=== PATIENT | male | born 1960 | race Caucasian/White ===

== ENCOUNTER 2018-08-26 20:29 | Inpatient (IN) | payer OTHER | END 2018-08-28 18:30 | disposition home or self-care (01) | LOC: ER 20:29 → TELE 08-27 05:58 → TELE-WESTW 08-27 14:21 | DX: I13.0 Hypertensive heart and chronic kidney disease with heart failure and stage 1 through stage 4 chronic kidney disease, or unspecified chronic kidney disease (principal); E11.22 Type 2 diabetes mellitus with diabetic chronic kidney disease; N17.9 Acute kidney failure, unspecified; E11.65 Type 2 diabetes mellitus with hyperglycemia; N18.3 Chronic kidney disease, stage 3 (moderate); I50.41 Acute combined systolic (congestive) and diastolic (congestive) heart failure; N18.9 Chronic kidney disease, unspecified; R79.1 Abnormal coagulation profile; E66.9 Obesity, unspecified; I50.43 Acute on chronic combined systolic (congestive) and diastolic (congestive) heart failure; I25.5 Ischemic cardiomyopathy; E44.1 Mild protein-calorie malnutrition; Z68.36 Body mass index [BMI] 36.0-36.9, adult ==

== ENCOUNTER → 2018-10-07 | Outpatient (CLI) | payer MEDICARE, OTHER ==
[~2018-10-07] MED LIST: ACAR25TA PO; ASP81EC PO; ATOR20TA50 PO; CLOP75TA28 PO; DOXA4TAB40 PO; FENO1TAB42 PO; FLUO-125 PO; GABA100C9 PO; HCTZ25T PO; MELO1TAB73 PO; METO-5 PO; OMEP20TA PO; PANT40T PO; PYRI50TA67 PO; SACU1TAB7 PO; TRAM50TA2 PO
== END | disposition home or self-care (01) ==
LOC: Rad HDHVI 09:32
PROVIDERS: ATTEND Internal Medicine Cardiovascular Disease
DX: I34.0 Nonrheumatic mitral (valve) insufficiency (principal); I25.5 Ischemic cardiomyopathy; I20.9 Angina pectoris, unspecified; I12.9 Hypertensive chronic kidney disease with stage 1 through stage 4 chronic kidney disease, or unspecified chronic kidney disease; E11.22 Type 2 diabetes mellitus with diabetic chronic kidney disease; N18.3 Chronic kidney disease, stage 3 (moderate)
CPT/HCPCS: 93306

== ENCOUNTER → 2018-10-27 | Outpatient (CLI) | payer MEDICARE, OTHER ==
[~2018-10-27] VITALS: Ht 172.7 cm; Wt 90.7 kg
[~2018-10-27] MED LIST changes: +ADENOSINE 76 MG in GIVE UN-DILUTED 0 ML IV ONE; +ADENOSINE 90 MG/30 ML INJ IV ONE
== END | disposition home or self-care (01) ==
LOC: Rad HDHVI 12:52
PROVIDERS: ATTEND Internal Medicine Cardiovascular Disease
DX: I25.5 Ischemic cardiomyopathy (principal); I13.0 Hypertensive heart and chronic kidney disease with heart failure and stage 1 through stage 4 chronic kidney disease, or unspecified chronic kidney disease; E11.22 Type 2 diabetes mellitus with diabetic chronic kidney disease; I50.23 Acute on chronic systolic (congestive) heart failure; N18.3 Chronic kidney disease, stage 3 (moderate); N28.9 Disorder of kidney and ureter, unspecified; I25.119 Atherosclerotic heart disease of native coronary artery with unspecified angina pectoris
CPT/HCPCS: 78452; 93005; 96374; 96375; A9500; J0153

== ENCOUNTER 2019-02-02 16:06 | Inpatient (IN) | payer MEDICARE, OTHER ==
[~2019-02-02] VITALS: Ht 172.7 cm; Wt 88.0 kg
[~2019-02-02 16:06] MED LIST changes: -ADENOSINE 76 MG in GIVE UN-DILUTED 0 ML IV ONE; -ADENOSINE 90 MG/30 ML INJ IV ONE; -DOXA4TAB40 PO; +DOXA4TAB5 PO
[2019-02-02 16:46] LABS: Basophils # (auto) 0.2 uL; Eosinophils # (auto) 0.1 uL; Eosinophils % (auto) 0.5 % (0.0-7.0); Hemoglobin 14.2 g/dL (13.5-17.5); Neutrophils # (auto) 7.5 uL
[2019-02-02 16:48] LABS: Basophils % (auto) 1.6 % (0.0-2.0); Hematocrit 38.4 % (41.0-53.0); Lymphocytes # (auto) 1.8 uL; Lymphocytes % (auto) 17.5 % (10.0-50.0); Mean Corpuscular Hgb Conc. 36.9 g/dL (32.0-36.0); Mean Corpuscular Volume 97.5 fL (80.0-100.0); Monocytes # (auto) 0.8 uL; Monocytes % (auto) 7.3 % (0.0-12.0); Neutrophils % (auto) 73.1 % (37.0-80.0); Platelet Count (auto) 322 10^3/uL (140-450); Red Blood Cells 3.94 10^6/uL (4.5-5.90); Red Cell Distribution Width 13.4 % (11.8-14.3); White Blood Cell 10.3 10^3/uL (4.4-10.8)
[2019-02-02 17:01] LABS: Albumin 3.6 g/dL (3.4-5.0); BUN/Creatinine Ratio 18.9; Calcium 9.2 mg/dL (8.5-10.1)
[2019-02-02 17:10] LABS: Bilirubin, Total 1.2 mg/dL (0.2-1.0); Total Protein 7.3 g/dL (6.4-8.2)
[2019-02-02 17:13] LABS: Potassium 2.9 mmol/L (3.5-5.1)
[2019-02-02] MEDS ORDERED: SODIUM CHLORIDE 0.9% 1,000 ML IVB ONE (18:14)
[2019-02-02] MEDS: POTASSIUM CHL 20MEQ/100ML 100 ML IV SCH ×2 (19:30→21:50)
[2019-02-02] MEDS ORDERED: POTASSIUM CHL 20MEQ/100ML 100 ML IV ONE (19:34)
[2019-02-02] MEDS ORDERED: FOLIC ACID 1 MG, MULTIPLE VITAMIN 10 ML, MAGNESIUM SULF SDV 50% 8 MEQ, THIAMINE INJ 100... INJ STA ×5 (20:39)
[2019-02-02] MEDS ORDERED: PANTOPRAZOLE 40 MG TAB PO ONE (21:00)
[2019-02-02] MEDS ORDERED: THIAMINE HCL 100 MG TAB PO ONE (21:00)
[2019-02-02] MEDS ORDERED: ASPirin-EC 81 mg tab PO ONE (21:00)
[2019-02-02] MEDS ORDERED: DEXTROSE (50%) 50ML SYRG IV PRN (22:00)
[2019-02-02] MEDS ORDERED: ONDANSETRON HCL 4 MG/2 ML VIAL IV PRN (22:00)
[2019-02-02] MEDS ORDERED: chlordiazePOXIDE HCL 25 MG CAP PO PRN (22:00)
[2019-02-02] MEDS ORDERED: METOPROLOL TARTRATE 50 MG TAB PO SCH (22:00)
[2019-02-02] MEDS ORDERED: SACUBITRIL-VALSARTAN 24mg/26mg TAB PO SCH (22:00)
[2019-02-02] MEDS ORDERED: MORPHINE SULF INJ 2 MG/ML SYRINGE 1ML IV PRN (22:15)
[2019-02-02] MEDS ORDERED: NITROGLYCERIN 0.4 MG SL TAB SL PRN (22:15)
[2019-02-02] MEDS: ATORVASTATIN 20 MG TAB PO SCH (22:26)
--- NOTE | 2019-02-02 23:55 | NUR ---
Telemetry admit from ER MCKENNA SALDANA admitted to Telemetry unit after SBAR received. Patient oriented to primary RN, unit, room, bed, and unit policies regarding patient care and visiting hours. Patient now on continuous telemetry monitoring, tele box # [id number]. Patient placed on bedside oxygen, weighed by bedscale and encouraged to call if they need something. All questions and concerns addressed, patient verbalized understanding.
[2019-02-03] MEDS: TEMAZEPAM 15 MG CAP PO PRN ×2 (00:34→21:51)
[2019-02-03] MEDS: ACCU-CHEK COMFORT CURVE STRIP VI SCH ×4 (00:34→17:38)
[2019-02-03] MEDS: InsuLIN REG 1unit/0.01ml Soln (100units/ml) SC SCH ×4 (01:14→17:37)
[2019-02-03 04:19] VITALS: BP 110/60
[2019-02-03 05:00] VITALS: BP 118/50
[2019-02-03 05:05] LABS: Albumin 2.7 g/dL (3.4-5.0); Calcium 8.1 mg/dL (8.5-10.1)
[2019-02-03 05:09] LABS: BUN/Creatinine Ratio 21.6; Bilirubin, Total 0.7 mg/dL (0.2-1.0); Total Protein 5.6 g/dL (6.4-8.2)
--- NOTE | 2019-02-03 05:20 | NUR ---
Critical Value Critical Value reading at 2.6 and BUN at 136. Call from Ender Atkinson from Lab. Hospitalist called, awaiting call back.
[2019-02-03 05:22] LABS: Potassium 2.6 mmol/L (3.5-5.1)
[2019-02-03 05:53] LABS: Basophils # (auto) 0.1 uL; Basophils % (auto) 0.9 % (0.0-2.0); Eosinophils # (auto) 0.1 uL; Eosinophils % (auto) 1.3 % (0.0-7.0); Hematocrit 32.3 % (41.0-53.0); Hemoglobin 11.9 g/dL (13.5-17.5); Lymphocytes # (auto) 1.8 uL; Lymphocytes % (auto) 21.5 % (10.0-50.0); Mean Corpuscular Hgb Conc. 36.9 g/dL (32.0-36.0); Mean Corpuscular Volume 97.6 fL (80.0-100.0); Monocytes # (auto) 0.7 uL; Monocytes % (auto) 7.8 % (0.0-12.0); Neutrophils # (auto) 5.8 uL; Neutrophils % (auto) 68.5 % (37.0-80.0); Nucleated Red Blood Cells % 0.2 %; Platelet Count (auto) 249 10^3/uL (140-450); Red Blood Cells 3.31 10^6/uL (4.5-5.90); Red Cell Distribution Width 13.1 % (11.8-14.3); White Blood Cell 8.5 10^3/uL (4.4-10.8)
--- NOTE | 2019-02-03 06:22 | NUR ---
Call back from Hospitalist. Orders received to give Potassium PO tablets. Orders carried out, will continue to monitor for changes.
[2019-02-03] MEDS ORDERED: POTASSIUM CHL 20 Meq TABLET PO ONE ×2 (06:30→17:30)
--- NOTE | 2019-02-03 07:30 | NUR ---
Opening Shift Note Assumed care of patient, awake, alert, and oriented x4. No S/S of distress/SOB or pain. IV is in left forearm 20 gauge, asymptomatic, intact, patent, and saline locked. Bed is locked and in lowest position and call light is within reach. Instructed on POC and to call for assist PRN, and patient verbalized understanding. Will continue to monitor for changes Q1hr and PRN.
[2019-02-03 09:00] VITALS: BP 99/50
--- NOTE | 2019-02-03 09:30 | NUR ---
Patient requesting to go outside to smoke; patient signed AMA paper, and paper was put in hard chart.
[2019-02-03] MEDS ORDERED: ASPirin 81 mg TAB PO SCH (10:00)
[2019-02-03] MEDS ORDERED: HCTZ 25 MG TAB PO SCH (10:00)
--- NOTE | 2019-02-03 10:10 | NUR ---
Dr. Echavarria, Seamless Tube Mill Operator, at bedside; new orders received.
--- NOTE | 2019-02-03 10:10 | NUR ---
Patient blood pressure is 85/47 mmHg. IV normal saline 500 mL bolus ordered. IV fluids normal saline order received for 100 mL/hour.
[2019-02-03] MEDS: SODIUM CHLORIDE 0.9% 1,000 ML IV SCH ×2 (10:15→21:51)
[2019-02-03] MEDS ORDERED: SODIUM CHLORIDE 0.9% 500 ML IV ONE ×2 (10:15→11:00)
[2019-02-03 10:19] LABS: Basophils # (auto) 0.1 uL; Eosinophils # (auto) 0.1 uL; Hemoglobin 12.9 g/dL (13.5-17.5); Lymphocytes # (auto) 1.3 uL; Mean Corpuscular Hemoglobin 36.7 pg (28.0-32.0); Monocytes # (auto) 0.5 uL; Red Blood Cells 3.51 10^6/uL (4.5-5.90); White Blood Cell 7.4 10^3/uL (4.4-10.8)
[2019-02-03 10:23] LABS: Eosinophils % (auto) 1.7 % (0.0-7.0); Hematocrit 34.8 % (41.0-53.0); Lymphocytes % (auto) 17.3 % (10.0-50.0); Mean Corpuscular Volume 99.2 fL (80.0-100.0); Monocytes % (auto) 6.8 % (0.0-12.0); Neutrophils # (auto) 5.4 uL; Neutrophils % (auto) 73.2 % (37.0-80.0); Platelet Count (auto) 268 10^3/uL (140-450); Red Cell Distribution Width 12.9 % (11.8-14.3)
--- NOTE | 2019-02-03 10:30 | NUR ---
Blood pressure reassessment 97/61 mmHg. Patient sitting in chair; no distress dizziness, or pain reported at this time. Will continue to monitor Q30 minutes.
[2019-02-03 10:33] LABS: Mean Corpuscular Hgb Conc. 36.7 g/dL (32.0-36.0)
--- NOTE | 2019-02-03 10:35 | NUR ---
Sanchez catheter insertion Patient assessed and determined to be in need of sanchez catheter. Order obtained from Dr. Italia MD. Patient educated on catheter and reason for insertion. All questions answered. Sanchez catheter 16 gauge [place] inserted with clean sterile technique. Patient tolerated well.
[2019-02-03 10:48] LABS: Calcium 8.3 mg/dL (8.5-10.1); Potassium 3.3 mmol/L (3.5-5.1)
--- NOTE | 2019-02-03 10:50 | NUR ---
Dr. Edge, Termite Control Representative, at bedside.
[2019-02-03 10:51] LABS: BUN/Creatinine Ratio 22.2; Bilirubin, Total 0.8 mg/dL (0.2-1.0); Total Protein 6.3 g/dL (6.4-8.2)
[2019-02-03] MEDS ORDERED: SODIUM CHLORIDE 0.9% 1,000 ML IV SCH (11:00)
--- NOTE | 2019-02-03 11:01 | NUR ---
Patient placed on strict I&O's.
[2019-02-03] MEDS: ASPirin 81 mg TAB PO SCH (11:10)
[2019-02-03] MEDS: FLUoxetine HCL 20 MG CAP PO SCH (11:11)
[2019-02-03] MEDS: GABAPENTIN 100 MG CAP PO SCH (11:12)
[2019-02-03] MEDS: PANTOPRAZOLE 40 MG TAB PO SCH (11:12)
--- NOTE | 2019-02-03 11:12 | NUR ---
CRITICAL LAB Received call from lab with critical BUN 129; informed Dr. Echavarria, Mover.
[2019-02-03] MEDS: CLOPIDOGREL BISULFATE 75 MG TAB PO SCH (11:13)
[2019-02-03] MEDS ORDERED: FOLIC ACID 1 MG, MULTIPLE VITAMIN 10 ML, MAGNESIUM SULF SDV 50% 8 MEQ, THIAMINE INJ 100... INJ SCH ×5 (12:00)
[2019-02-03] MEDS: FOLIC ACID 1 MG, MULTIPLE VITAMIN 10 ML, MAGNESIUM SULF SDV 50% 8 MEQ, THIAMINE INJ 100... INJ SCH ×5 (12:00)
[2019-02-03 13:00] VITALS: BP 103/69
--- NOTE | 2019-02-03 16:00 | NUR ---
Dr. Horace MD, at bedside.
[2019-02-03 16:19] LABS: BUN/Creatinine Ratio 24.2; Calcium 8.2 mg/dL (8.5-10.1); Potassium 3.4 mmol/L (3.5-5.1)
--- NOTE | 2019-02-03 16:35 | NUR ---
CRITICAL LAB Received call from lab with critical BUN 125; informed Dr. Horace MD.
[2019-02-03 17:00] VITALS: BP 102/66
--- NOTE | 2019-02-03 17:20 | NUR ---
Sent urine sample to lab.
[2019-02-03 17:31] LABS: Urine Bacteria FEW /hpf (None Seen); Urine Blood 2+ /uL (Negative); Urine Specific Gravity 1.012 (1.001-1.035); Urine WBC 11 /hpf (0 - 3)
[2019-02-03 17:51] LABS: Alcohol, Urine < 3.0 mg/dL (0-5); Amphetamine Screen, Urine NEGATIVE (NEGATIVE); Barbiturate Scree,Urine NEGATIVE (NEGATIVE); Benzodiazephine Screen, Urine NEGATIVE (NEGATIVE); Cannabinoid Screen, Urine NEGATIVE (NEGATIVE); Cocaine Screen, Urine NEGATIVE (NEGATIVE); Creatinine, Urine 72 mg/dL (30.0-125.0); Opiate Scree,Urine NEGATIVE (NEGATIVE); Phencyclidine Screen, Urine NEGATIVE (NEGATIVE); Sodium Urine 48 mmol/L (40-220)
--- NOTE | 2019-02-03 19:30 | NUR ---
Opening Shift Note Assumed care of patient. Patient is awake and alert. No S/S of distress/SOB or pain. Wall catheter intact, patent and draining to gravity. Instructed on POC and to call for assist PRN, will continue to monitor for changes. Bed locked in lowest position and bed rails up x2. Call light within reach.
[2019-02-03] MEDS: ATORVASTATIN 20 MG TAB PO SCH (21:51)
[2019-02-03 22:00] VITALS: BP 94/63
[2019-02-04] MEDS: ACCU-CHEK COMFORT CURVE STRIP VI SCH ×5 (00:14→23:40)
[2019-02-04] MEDS: InsuLIN REG 1unit/0.01ml Soln (100units/ml) SC SCH ×5 (00:14→23:41)
[2019-02-04 05:17] VITALS: BP 109/64
[2019-02-04 06:22] LABS: Basophils # (auto) 0.1 uL; Hemoglobin 11.7 g/dL (13.5-17.5); Mean Corpuscular Hemoglobin 36.2 pg (28.0-32.0); Neutrophils # (auto) 5.2 uL; Red Cell Distribution Width 13.3 % (11.8-14.3); White Blood Cell 7.2 10^3/uL (4.4-10.8)
[2019-02-04 06:26] LABS: Eosinophils # (auto) 0.2 uL; Eosinophils % (auto) 2.2 % (0.0-7.0); Lymphocytes # (auto) 1.3 uL; Lymphocytes % (auto) 18.2 % (10.0-50.0); Mean Corpuscular Volume 96.2 fL (80.0-100.0); Monocytes # (auto) 0.4 uL; Monocytes % (auto) 5.9 % (0.0-12.0); Neutrophils % (auto) 71.7 % (37.0-80.0); Platelet Count (auto) 232 10^3/uL (140-450); Red Blood Cells 3.22 10^6/uL (4.5-5.90)
[2019-02-04] MEDS: SODIUM CHLORIDE 0.9% 1,000 ML IV SCH ×2 (06:31→16:15)
[2019-02-04 06:34] LABS: BUN/Creatinine Ratio 26.9; Calcium 8.3 mg/dL (8.5-10.1); Magnesium 2.3 mg/dL (1.6-2.6); Phosphorus 2.9 mg/dL (2.5-4.90)
[2019-02-04 06:36] LABS: Mean Corpuscular Hgb Conc. 36.7 g/dL (32.0-36.0)
--- NOTE | 2019-02-04 06:46 | NUR ---
CRITICAL LAB VALUE Received call from lab for BUN value of 109. Value acknowledged and trending down.
--- NOTE | 2019-02-04 07:30 | NUR ---
Opening Shift Note Assumed care of patient, awake, alert, and oriented x4. No S/S of distress/SOB or pain. IV is in left forearm 20 gauge, asymptomatic, intact, patent, and saline locked. Wall catheter patent and draining clear marcus urine to gravity. Bed is locked and in lowest position and call light is within reach. Instructed on POC and to call for assist PRN, and patient verbalized understanding. Will continue to monitor for changes Q1hr and PRN.
[2019-02-04 09:00] VITALS: BP 115/78
[2019-02-04] MEDS ORDERED: POTASSIUM EFFERVESENT TAB 25 MEQ PO ONE (09:15)
[2019-02-04] MEDS: NICOTINE 21MG/24 HR TOPICAL PATCH TD SCH (10:00)
[2019-02-04] MEDS: FLUoxetine HCL 20 MG CAP PO SCH (10:10)
[2019-02-04] MEDS: PANTOPRAZOLE 40 MG TAB PO SCH (10:10)
[2019-02-04] MEDS: CLOPIDOGREL BISULFATE 75 MG TAB PO SCH (10:10)
[2019-02-04] MEDS: ASPirin 81 mg TAB PO SCH (10:10)
[2019-02-04] MEDS: GABAPENTIN 100 MG CAP PO SCH (10:10)
[2019-02-04] MEDS ORDERED: POTASSIUM CHL 20 Meq TABLET PO ONE (11:00)
[2019-02-04] MEDS: FOLIC ACID 1 MG, MULTIPLE VITAMIN 10 ML, MAGNESIUM SULF SDV 50% 8 MEQ, THIAMINE INJ 100... INJ SCH ×5 (12:18)
[2019-02-04 13:00] VITALS: BP 133/93
--- NOTE | 2019-02-04 14:00 | NUR ---
Dr. Horace MD, at bedside.
[2019-02-04 16:47] VITALS: BP 107/72
--- NOTE | 2019-02-04 18:11 | NUR ---
Assessment Pt was in a deep sleep and after several prompts, SW unable to wake up pt for initial assessment Addendum: 02/04/19 at 1812 by OFELIA BALL SS Amended: Links added.
--- NOTE | 2019-02-04 19:30 | NUR ---
PM NOTE PT SITTING IN BED BY WINDOW, PLAYING IN COMPUTER [employer], RESPIRATIONS NORMAL AND NON-LABORED, NO DISTRESS NOTED. 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 WILL CONTINUE TO MONITOR Signed: 02/04/19 at 2143 by SAM DICK SN <Co-Signature Required> Co-Signed: 02/04/19 at 2143 by Anne Conner RN
--- NOTE | 2019-02-04 22:00 | NUR ---
PT SITTING IN CHAIR BY WINDOW PLAYING ON COMPUTER. A&OX[employer], RESPIRATIONS ARE NORMAL AND NON-LABORED. NO SIGNS OF DISTRESS, DENIES ANY PAIN AT THE MOMENT. PT AWARE OF PLAN OF CARE. WILL CONTINUE TO MONITOR. Signed: 02/05/19 at 041 by SAM DICK <Co-Signature Required> Co-Signed: 02/05/19 at 411 by Anne Conner RN
[2019-02-04] MEDS: ATORVASTATIN 20 MG TAB PO SCH (22:07)
[2019-02-04 22:30] VITALS: BP 127/95
[2019-02-04] MEDS: TEMAZEPAM 15 MG CAP PO PRN (23:26)
--- NOTE | 2019-02-04 23:30 | NUR ---
PT LAYING IN BED RESTING CALMLY, RESPIRATIONS ARE NORMAL AND NON-LABORED. NO SIGNS OF DISTRESS. CALL LIGHT WITHIN REACH. WILL CONTINUE TO MONITOR. Signed: 02/05/19 at 416 by SAM DICK <Co-Signature Required> Co-Signed: 02/05/19 at 416 by Anne Conner RN
--- NOTE | 2019-02-05 03:00 | NUR ---
PT DONE WITH BANANA BAG REFUSING NS IV FLUIDS AT THIS TIME. PT CURRENTLY DRINKING WATER. EDUCATED PT ABOUT BENEFITS OF IV FLUIDS, PT VERBALIZED UNDERSTANDING. Signed: 02/05/19 at 0405 by SAM DICK <Co-Signature Required> Co-Signed: 02/05/19 at 0405 by Anne Conner RN
[2019-02-05 05:15] VITALS: BP 120/64
[2019-02-05] MEDS: SODIUM CHLORIDE 0.9% 1,000 ML IV SCH ×3 (05:39→22:15)
[2019-02-05] MEDS: ACCU-CHEK COMFORT CURVE STRIP VI SCH ×3 (05:40→18:07)
[2019-02-05] MEDS: InsuLIN REG 1unit/0.01ml Soln (100units/ml) SC SCH ×3 (05:40→18:00)
[2019-02-05 06:07] LABS: Basophils # (auto) 0.1 uL; Eosinophils # (auto) 0.2 uL; Lymphocytes # (auto) 1.2 uL; Mean Corpuscular Hemoglobin 36.6 pg (28.0-32.0); Monocytes # (auto) 0.4 uL; Red Cell Distribution Width 13.1 % (11.8-14.3)
[2019-02-05 06:09] LABS: Basophils % (auto) 1.9 % (0.0-2.0); Eosinophils % (auto) 2.6 % (0.0-7.0); Hematocrit 30.9 % (41.0-53.0); Hemoglobin 11.7 g/dL (13.5-17.5); Lymphocytes % (auto) 18.6 % (10.0-50.0); Mean Corpuscular Hgb Conc. 37.8 g/dL (32.0-36.0); Mean Corpuscular Volume 96.9 fL (80.0-100.0); Neutrophils # (auto) 4.7 uL; Neutrophils % (auto) 70.9 % (37.0-80.0); Platelet Count (auto) 222 10^3/uL (140-450); Red Blood Cells 3.19 10^6/uL (4.5-5.90); White Blood Cell 6.6 10^3/uL (4.4-10.8)
[2019-02-05 06:55] LABS: Albumin 2.7 g/dL (3.4-5.0); BUN/Creatinine Ratio 28.6; Bilirubin, Total 0.6 mg/dL (0.2-1.0); Calcium 8.5 mg/dL (8.5-10.1); Magnesium 2.1 mg/dL (1.6-2.6); Total Protein 5.5 g/dL (6.4-8.2)
--- NOTE | 2019-02-05 07:58 | NUR ---
OPENING SHIFT NOTE ASSUMED CARE OF PATIENT. PATIENT AWAKE AND ALERT SITTING UP IN CHAIR AT BEDSIDE. NO S/S OF DISTRESS OR SOB NOTED AT THIS TIME. BED IN LOWEST LOCKED POSITION. REVIEWED POC WITH PATIENT AND INSTRUCTED TO CALL FOR ASSIST NEEDED. WILL CONTINUE TO MONITOR.
[2019-02-05 09:00] VITALS: BP 124/77
[2019-02-05] MEDS ORDERED: POTASSIUM CHL 20 Meq TABLET PO ONE (09:15)
[2019-02-05] MEDS: NICOTINE 21MG/24 HR TOPICAL PATCH TD SCH (10:00)
[2019-02-05] MEDS: CLOPIDOGREL BISULFATE 75 MG TAB PO SCH (10:33)
[2019-02-05] MEDS: PANTOPRAZOLE 40 MG TAB PO SCH (10:33)
[2019-02-05] MEDS: GABAPENTIN 100 MG CAP PO SCH (10:34)
[2019-02-05] MEDS: ASPirin 81 mg TAB PO SCH (10:34)
[2019-02-05] MEDS: FLUoxetine HCL 20 MG CAP PO SCH (10:34)
[2019-02-05] MEDS: FOLIC ACID 1 MG, MULTIPLE VITAMIN 10 ML, MAGNESIUM SULF SDV 50% 8 MEQ, THIAMINE INJ 100... INJ SCH ×5 (11:59)
--- NOTE | 2019-02-05 12:00 | NUR ---
AT BEDSIDE DR ROSS AT BEDSIDE AT THIS TIME. NO NEW ORDERS RECEIVED. CONTINUING TO MONITOR.
[2019-02-05 12:30] VITALS: BP 105/57
[2019-02-05 17:00] VITALS: BP 126/84
--- NOTE | 2019-02-05 19:25 | NUR ---
OPENING SHIFT NOTE ASSUMED CARE OF PATIENT. PATIENT AWAKE AND ALERT SITTING UP IN A CHAIR. NO S/S OF DISTRESS OR SOB NOTED. CALL LIGHT WITHIN REACH. REVIEWED POC WITH PATIENT AND INSTRUCTED TO CALL FOR ASSIST NEEDED. WILL CONTINUE TO MONITOR.
[2019-02-05] MEDS: TEMAZEPAM 15 MG CAP PO PRN (22:15)
[2019-02-05] MEDS: ATORVASTATIN 20 MG TAB PO SCH (22:15)
--- NOTE | 2019-02-05 22:45 | NUR ---
GAVE REPORT TO KYRA.
--- NOTE | 2019-02-05 22:45 | NUR ---
Received report from Anne. Will continue care.
[2019-02-05 23:40] VITALS: BP 145/105
[2019-02-06 05:40] VITALS: BP 118/68
[2019-02-06] MEDS: InsuLIN REG 1unit/0.01ml Soln (100units/ml) SC SCH ×5 (06:00→23:55)
[2019-02-06] MEDS: ACCU-CHEK COMFORT CURVE STRIP VI SCH ×5 (06:00→23:56)
--- NOTE | 2019-02-06 07:30 | NUR ---
OPENING SHIFT NOTE ASSUMED CARE OF PATIENT. PATIENT RESTING COMFORTABLY IN BED WITH EYES CLOSED. NO S/S OF DISTRESS OR SOB NOTED. BED IN LOWEST LOCKED POSITION, CALL LIGHT WITHIN REACH. WILL CONTINUE TO MONITOR.
[2019-02-06 07:37] LABS: Calcium 8.5 mg/dL (8.5-10.1); Potassium 3.3 mmol/L (3.5-5.1)
[2019-02-06 07:39] LABS: BUN/Creatinine Ratio 29.1
[2019-02-06] MEDS: SODIUM CHLORIDE 0.9% 1,000 ML IV SCH ×2 (08:15→22:00)
[2019-02-06 08:43] VITALS: BP 148/94
[2019-02-06] MEDS ORDERED: POTASSIUM CHL 20 Meq TABLET PO ONE (09:00)
[2019-02-06] MEDS: FLUoxetine HCL 20 MG CAP PO SCH (09:57)
[2019-02-06] MEDS: CLOPIDOGREL BISULFATE 75 MG TAB PO SCH (09:57)
[2019-02-06] MEDS: PANTOPRAZOLE 40 MG TAB PO SCH (09:57)
[2019-02-06] MEDS: SPIRONOLACTONE 25 MG TAB PO SCH (09:57)
[2019-02-06] MEDS: GABAPENTIN 100 MG CAP PO SCH (09:58)
[2019-02-06] MEDS: ASPirin 81 mg TAB PO SCH (09:58)
[2019-02-06] MEDS: NICOTINE 21MG/24 HR TOPICAL PATCH TD SCH (10:00)
[2019-02-06] MEDS: FOLIC ACID 1 MG, MULTIPLE VITAMIN 10 ML, MAGNESIUM SULF SDV 50% 8 MEQ, THIAMINE INJ 100... INJ SCH ×5 (12:00)
[2019-02-06 13:00] VITALS: BP 141/83
--- NOTE | 2019-02-06 15:49 | NUR ---
PATIENT REPORTED INJURY PATIENT RETURNED TO UNIT FROM GOING OUTSIDE TO SMOKE. AMA PREVIOUSLY OBTAINED. PATIENT WAS NOTED TO BE BLEEDING FROM RIGHT LOMBARDI. PER PATIENT HE BUMPED THE FOOT RESTS ON THE WHEELCHAIR. RN CLEANSED SKIN AND PAT DRY AND NOTED SKIN TEAR. PHOTOS TAKEN AND DRESSING APPLIED. PATIENT TOLERATED WELL.
[2019-02-06 17:00] VITALS: BP 154/96
--- NOTE | 2019-02-06 18:43 | NUR ---
END OF SHIFT NOTE PATIENT AWAKE AND ALERT SITTING UP IN BED. NO S/S OF DISTRESS OR SOB NOTED. BED IN LOWEST LOCKED POSITION, CALL LIGHT WITHIN REACH. WILL ENDORSE CARE TO NOC RN.
--- NOTE | 2019-02-06 19:30 | NUR ---
Opening Shift Assumed care of patient, awake and alert. No S/S of distress/SOB or pain. Insructed on POC and to callfor assist PRN, will continue to monitor for changes Q1hr and PRN. Fall and safety precautions in place. Call light within reach.
--- NOTE | 2019-02-06 20:00 | NUR ---
PATIENT OFF FLOOR Patient requesting to be disconnected from IV fluids to go downstairs. Patient was disconnected and ambulated self to wheelchair. Patient able to wheel himself independently off floor. No distress noted.
--- NOTE | 2019-02-06 20:29 | NUR ---
PATIENT BACK Patient back in room. No distress noted. Will continue to monitor
[2019-02-06] MEDS: TEMAZEPAM 15 MG CAP PO PRN (21:36)
[2019-02-06] MEDS: ATORVASTATIN 20 MG TAB PO SCH (21:36)
--- NOTE | 2019-02-06 22:00 | NUR ---
IV FLUIDS Patient refusing IV fluids, stating the pump has been beeping "all day." IV access flushed with saline, was patent and asymptomatic. Attempted to straighten IV tubing by securing to patient's extremity, IV pump still continued to beep, saying "pressure high." Educated patient that IV fluids needed to be infused because it was full of vitamins and minerals (banana bag from earlier in day still hasn't been infused). Patient stated "I'll just take a multivitamin." Educated patient that maybe a different IV access needed to be obtained, patient refused. Patient stating "just disconnect the fucking thing and call it a night," as witnessed by ERGONOMIC SPECIALIST. Patient disconnected from IV fluids at this time, will inform day shift RN to inform MD. Will continue to monitor
[2019-02-07] MEDS: SODIUM CHLORIDE 0.9% 1,000 ML IV SCH ×2 (04:15→11:30)
[2019-02-07 05:43] VITALS: BP 137/68
[2019-02-07] MEDS: ACCU-CHEK COMFORT CURVE STRIP VI SCH ×4 (05:45→23:29)
[2019-02-07] MEDS: InsuLIN REG 1unit/0.01ml Soln (100units/ml) SC SCH ×4 (05:45→23:29)
[2019-02-07 07:00] LABS: Calcium 8.7 mg/dL (8.5-10.1); Potassium 3.5 mmol/L (3.5-5.1)
[2019-02-07 07:02] LABS: BUN/Creatinine Ratio 22.6
--- NOTE | 2019-02-07 07:20 | NUR ---
Opening Shift Note Assumed care of patient, awake and alert. No S/S of distress/SOB or pain. Instructed on POC and to call for assist PRN, will continue to monitor for changes Q1hr and PRN. Bed locked in lowest position with two side rails up and call light in reach.
[2019-02-07 08:00] VITALS: BP 144/90
[2019-02-07 08:38] VITALS: BP 144/90
[2019-02-07] MEDS: NICOTINE 21MG/24 HR TOPICAL PATCH TD SCH (10:00)
[2019-02-07] MEDS: FLUoxetine HCL 20 MG CAP PO SCH (10:04)
[2019-02-07] MEDS: PANTOPRAZOLE 40 MG TAB PO SCH (10:04)
[2019-02-07] MEDS: ASPirin 81 mg TAB PO SCH (10:05)
[2019-02-07] MEDS: GABAPENTIN 100 MG CAP PO SCH (10:05)
[2019-02-07] MEDS: SPIRONOLACTONE 25 MG TAB PO SCH (10:05)
[2019-02-07] MEDS: CLOPIDOGREL BISULFATE 75 MG TAB PO SCH (10:05)
[2019-02-07] MEDS: FOLIC ACID 1 MG, MULTIPLE VITAMIN 10 ML, MAGNESIUM SULF SDV 50% 8 MEQ, THIAMINE INJ 100... INJ SCH ×5 (12:00)
[2019-02-07 12:30] VITALS: BP 148/86
--- NOTE | 2019-02-07 12:30 | NUR ---
DR VANDANA SHELTON
[2019-02-07 17:00] VITALS: BP 162/95
--- NOTE | 2019-02-07 20:00 | NUR ---
IV FLUIDS Patient was asked if he could comply with ordered IV fluids at this time, patient stated "no, let's not deal with that tonight." Attempted to educate patient that MD has ordered IV fluids for hydration/kidney function, patient verbalized understanding, but still refusing. Will continue to monitor
[2019-02-07] MEDS: ATORVASTATIN 20 MG TAB PO SCH (21:47)
[2019-02-07] MEDS: TEMAZEPAM 15 MG CAP PO PRN (21:47)
--- NOTE | 2019-02-07 22:30 | NUR ---
ACTIVITY Witnessed patient ambulating in hallways while holding onto wheelchair, steady gait noted. No distress noted at this time. Will continue to monitor
[2019-02-07 23:08] VITALS: BP 153/86
[2019-02-08 05:40] VITALS: BP 123/84
[2019-02-08] MEDS: InsuLIN REG 1unit/0.01ml Soln (100units/ml) SC SCH ×2 (05:48→12:00)
[2019-02-08] MEDS: ACCU-CHEK COMFORT CURVE STRIP VI SCH ×2 (05:48→12:00)
[2019-02-08] MEDS: SODIUM CHLORIDE 0.9% 1,000 ML IV SCH (07:28)
[2019-02-08 08:00] VITALS: BP 145/101
[2019-02-08 08:30] VITALS: BP 145/101
[2019-02-08] MEDS: SPIRONOLACTONE 25 MG TAB PO SCH (09:59)
[2019-02-08] MEDS: PANTOPRAZOLE 40 MG TAB PO SCH (09:59)
[2019-02-08] MEDS: GABAPENTIN 100 MG CAP PO SCH (09:59)
[2019-02-08] MEDS: FLUoxetine HCL 20 MG CAP PO SCH (09:59)
[2019-02-08] MEDS: CLOPIDOGREL BISULFATE 75 MG TAB PO SCH (09:59)
[2019-02-08] MEDS: ASPirin 81 mg TAB PO SCH (09:59)
[2019-02-08] MEDS: NICOTINE 21MG/24 HR TOPICAL PATCH TD SCH (10:00)
[2019-02-08] MEDS: FOLIC ACID 1 MG, MULTIPLE VITAMIN 10 ML, MAGNESIUM SULF SDV 50% 8 MEQ, THIAMINE INJ 100... INJ SCH ×5 (10:01)
[2019-02-08 12:30] VITALS: BP 136/93
[2019-02-08] MEDS ORDERED: SPIR25TA88 PO (12:57)
[2019-02-08 13:57] VITALS: BP 139/107
--- NOTE | 2019-02-08 15:31 | NUR ---
Discharge instructions given as ordered. Encourage to follow up with PMD as instructed. All questions and concerns addressed. Patient verbalized understanding. Medication reconciliation form completed and copy given to patient. Home medications held in Pharmacy returned to patient, and NO needed vaccines given. IV removed with catheter intact, pressure dressing applied. Telemetry unit returned to ICU. Patient taken to vehicle via wheelchair with all personal belongings, accompanied by staff and family member. No distress noted at time of departure.
--- NOTE | 2019-02-08 15:42 | NUR ---
PATIENT REFUSED DISCHARGE WOUND PICTURES FOR THE ABRASIONS.
--- NOTE | 2019-02-08 15:57 | NUR ---
D/C Planning Per for Home Health for visiting nurse for medication compliance and education. Information and choice letter was given to Pt at bedside. Pt requested Nal[facility] VILL[facility]RE[facility]. Contacted [facility] ph:) Fax:) faxed medical records. Per Aureliano raymond [facility] Pt has been accepted and service to start within 48hrs upon d/c day. Addendum: 02/08/19 at 1600 by LOW FLAHERTY Amended: Links added. Addendum: 02/08/19 at 1604 by LOW FLAHERTY Pt verbalize understanding D/C plan.
== END 2019-02-08 15:37 | disposition home health service (06) | DRG 682 ==
LOC: ER 16:06 → TELE 16:07 → TELE-WESTW 23:36
PROVIDERS: ADMIT Nurse Practitioner; ATTEND Internal Medicine
DX: N17.9 Acute kidney failure, unspecified (principal); I50.23 Acute on chronic systolic (congestive) heart failure; I13.0 Hypertensive heart and chronic kidney disease with heart failure and stage 1 through stage 4 chronic kidney disease, or unspecified chronic kidney disease; E87.6 Hypokalemia; E11.21 Type 2 diabetes mellitus with diabetic nephropathy; E11.22 Type 2 diabetes mellitus with diabetic chronic kidney disease; E78.5 Hyperlipidemia, unspecified; F41.9 Anxiety disorder, unspecified; I12.9 Hypertensive chronic kidney disease with stage 1 through stage 4 chronic kidney disease, or unspecified chronic kidney disease; I25.10 Atherosclerotic heart disease of native coronary artery without angina pectoris; S80.12XA Contusion of left lower leg, initial encounter; R29.6 Repeated falls; K70.30 Alcoholic cirrhosis of liver without ascites; N18.3 Chronic kidney disease, stage 3 (moderate); I95.9 Hypotension, unspecified; E86.0 Dehydration; N20.0 Calculus of kidney; T14.8XXA Other injury of unspecified body region, initial encounter; W18.39XA Other fall on same level, initial encounter; R55 Syncope and collapse; R00.1 Bradycardia, unspecified; F17.210 Nicotine dependence, cigarettes, uncomplicated; F32.9 Major depressive disorder, single episode, unspecified; Z80.0 Family history of malignant neoplasm of digestive organs; Z82.49 Family history of ischemic heart disease and other diseases of the circulatory system; Z95.5 Presence of coronary angioplasty implant and graft; Z71.6 Tobacco abuse counseling; Z71.41 Alcohol abuse counseling and surveillance of alcoholic; Y93.89 Activity, other specified; Y92.89 Other specified places as the place of occurrence of the external cause; Y99.8 Other external cause status
CPT/HCPCS: 36415; 70450; 71111; 71250; 73000; 76775; 80048; 80053; 80307; 80320; 81001; 82570; 82962; 83036; 83735; 83880; 84100; 84300; 84484; 85025; 93005; 93306; 96361; 96365; G0378; J1815; J3480

== ENCOUNTER → 2019-02-22 | Outpatient (CLI) | payer MEDICARE ==
[~2019-02-22] MED LIST changes: -ACAR25TA PO; -FENO1TAB42 PO; -HCTZ25T PO; -MELO1TAB73 PO; -OMEP20TA PO; -PANT40T PO; -PYRI50TA67 PO; -SACU1TAB7 PO; +SPIR25TA88 PO; -TRAM50TA2 PO
[2019-02-22 12:53] LABS: Urine Bacteria NONE SEEN /hpf (None Seen); Urine Blood Negative /uL (Negative); Urine Specific Gravity 1.014 (1.001-1.035); Urine WBC 8 /hpf (0 - 3)
[2019-02-22 13:19] LABS: Calcium 9.4 mg/dL (8.5-10.1); Potassium 4.4 mmol/L (3.5-5.1)
[2019-02-22 13:31] LABS: Micro Albumin 53.7 mg/L (0-30.0)
[2019-02-24 14:25] LABS: Creatinine, Urine 65.7 mg/dL (30.0-125.0)
[2019-02-24 15:35] LABS: Creatinine Clearance, Urine 183.27 mL/min (75-115)
== END | disposition home or self-care (01) ==
LOC: LAB 11:34
PROVIDERS: ATTEND Internal Medicine
DX: I11.0 Hypertensive heart disease with heart failure (principal); I50.9 Heart failure, unspecified
CPT/HCPCS: 36415; 80048; 81001; 82043; 82575; 84300